=== PATIENT | female | born 1985 | race Asian ===

== ENCOUNTER 2022-11-29 14:50 | Emergency (ER) | payer MEDICAID ==
[~2022-11-29] VITALS: Ht 160 cm; Wt 54.9 kg
[2022-11-29] MEDS ORDERED: ACETAMINOPHEN ES 500 MG TABLET PO ONE (17:00)
[2022-11-29] MEDS ORDERED: IV NS 0.9% 1,000 ML BAG IV ONE (17:00)
[2022-11-29] MEDS ORDERED: CLINDAMYCIN 600 MG in IV D5W 100 ML IV ONE (17:00)
[2022-11-29] MEDS ORDERED: ACETAMINOPHEN ES 500 MG TABLET ONE (17:08)
[2022-11-29 17:34] LABS: BASOPHILS % (AUTO) 0.3 % (0.0-2.0); EOSINOPHILS # (AUTO) 0.1 K/uL (0.0-0.7); HEMATOCRIT 37 % (33-45); HEMOGLOBIN 12.3 g/dL (11.5-14.8); LYMPHOCYTES # (AUTO) 0.9 K/uL (0.8-4.8); LYMPHOCYTES % (AUTO) 9.9 % (20.0-44.0); MEAN CORPUSCULAR HEMOGLOBIN 31 PG (26.0-33.0); MEAN CORPUSCULAR HGB CONC 33 g/dl (31.0-36.0); MEAN CORPUSCULAR VOLUME 94 fL (82-100); MONOCYTES # (AUTO) 0.8 K/uL (0.1-1.30); MONOCYTES % (AUTO) 8.4 % (2.0-12.0); NEUTROPHILS # (AUTO) 7.4 K/uL (1.8-8.9); NEUTROPHILS % (AUTO) 80.4 % (43.0-81.0); PLATELET COUNT (AUTO) 365 K/uL (150-450); RED BLOOD CELL COUNT(AUTO) 3.96 MIL/uL (4.0-5.2); RED CELL DISTRIBUTION WIDTH 13.8 % (11.5-15.0); WHITE BLOOD COUNT (AUTO) 9.3 K/uL (4.3-11.0)
[2022-11-29 17:55] LABS: CALCIUM, SERUM 9.2 mg/dL (8.5-10.1); CARBON DIOXIDE 26 mmol/L (21-32); CHLORIDE 98 mmol/L (98-107); CREATININE 0.8 mg/dL (0.6-1.3); GLUCOSE 97 mg/dL (74-106); LACTIC ACID 1.2 mmol/L (0.4-2.0); POTASSIUM 4.3 mmol/L (3.5-5.1); SODIUM SERUM 133 mmol/L (136-145); UREA NITROGEN, BLOOD 8 mg/dL (7-18)
[2022-11-29 18:04] LABS: ALANINE AMINOTRANSFERASE 132 U/L (12-78); ALBUMIN 2.9 g/dL (3.4-5.0); ALKALINE PHOSPHATASE 262 U/L (46-116); ASPARTATE AMINOTRANSFERASE 88 U/L (15-37); BILIRUBIN,DIRECT 0.1 mg/dL (0.0-0.2); BILIRUBIN,TOTAL 0.5 mg/dL (0.2-1.0); TOTAL PROTEIN, SERUM 8.9 g/dL (6.4-8.2)
[2022-11-29 18:18] LABS: ANISOCYTOSIS 1+; BAND % (MANUAL) 4 % (0.0-5.0); LYMPHOCYTES % (MANUAL) 12 % (16-48); MONOCYTES % (MANUAL) 7 % (0-11.0); NEUTROPHILS % (MANUAL) 77 (42-76); PLATELET ESTIMATE ADEQUATE
[2022-11-29 20:03] LABS: APPEARANCE,URINE CLOUDY (CLEAR)
[2022-11-29 20:04] LABS: COLOR,URINE RED (YELLOW)
[2022-11-29 20:10] LABS: BACTERIA,URINE 1+ /HPF (None Seen); RBC,URINE 81-100 /HPF (0-2)
[2022-11-29] MEDS ORDERED: AMOX-430 PO (20:19)
[2022-11-29 21:58] VITALS: BP 110/68; TEMP 98; O2SAT 98
== END 2022-11-29 20:30 | disposition home or self-care (01) ==
LOC: ER 15:14
DX: N39.0 Urinary tract infection, site not specified (principal); R22.9 Localized swelling, mass and lump, unspecified; R50.9 Fever, unspecified; Z79.899 Other long term (current) drug therapy
CPT/HCPCS: 99284; 96365; 71045; 96361; 84145; 85025; 80048; 87040 ×2; 87086; 83605; 80076; 81001; 36415; 84484; 85007; J3490; J7060; J7030 ×2; J7040

== ENCOUNTER → 2022-12-15 | Emergency (ER) | payer MEDICAID ==
[~2022-12-15] VITALS: Ht 160 cm; Wt 59.4 kg
[~2022-12-15] MED LIST: AMOX-430 PO; CLIN300C12 PO; CLINDAMYCIN HCL 150 MG CAPSULE ONE; CLINDAMYCIN HCL 150 MG CAPSULE PO ONE; IBUPROFEN 400 MG TABLET ONE; IBUPROFEN 400 MG TABLET PO ONE
[2022-12-15 11:29] VITALS: BP 128/76; TEMP 100.5; O2SAT 100
== END | disposition home or self-care (01) ==
LOC: ER 10:05
DX: L53.9 Erythematous condition, unspecified (principal)